=== PATIENT | male | born 1960 | race Caucasian/White ===

== ENCOUNTER 2019-09-16 18:48 | Inpatient (IN) ==
--- OUTSIDE RECORDS SUMMARY | 2019-09-16 18:50 | External Medical Summary | Continuity of Care Document ---
:1960 Author Name Melina Colvin Address Unavailable Unavailable , Care Team Providers Name Role Phone Lori Munguia III, M.D.. Unavailable [email or web address]., Lori Unavailable Unavailable Unavailable Unavailable Unavailable Problems Fatty liver (571.8) (K76.0) Pseudogout (275.49) (M11.20) Herpes simplex (054.9) (B00.9) Abnormal liver function test (790.6) (R94.5) Hypothyroidism (244.9) (E03.9) Allergies and Adverse Reactions No Known Drug Allergies (Allergy) Medications Levothyroxine Sodium 100 MCG Oral Tablet; TAKE 1 TABLE T DAILY DIRECTED. Vinicius Munguia III Quantity: 30 Refills: 5 Procedures History of Shoulder Surgery Status: Comp leted Immunizations Immunizations not documented Family History Father Family history of Alcohol Abuse Status: Active Mother Family history of Chronic Obstructive Pulmonary Disease Stat us: Active Sister Family history of Leukemia (V16.6) Status: Active Plan of Treatment Planned Observations Planned Goals not documented Results No Known Results Results not documented
[2019-09-16] MEDS ORDERED: SODIUM CHLORIDE 0.9% 500 ML IV ONE (19:15)
--- NOTE | 2019-09-16 19:31 | XRay Report ---
XR chest 1V portable CLINICAL HISTORY: 59 years-old Male presenting with Chest Pain. TECHNIQUE: Portable upright AP view of the chest was obtained. COMPARISON: 09/27/2012. FINDINGS: Borderline enlargement of the cardiac silhouette. Pulmonary vasculature not significantly prominent. Mildly low lung volumes. No focal opacity. No large effusion or pneumothorax. Osseous structures norm al. Upper abdomen normal. IMPRESSION: 1. No acute cardiopulmonary disease. ACT 112: Negative or not required by law. Electronically signed by: Deniz Cheema M.D. 09/16/2019 7:30 PM
[2019-09-16 19:36] LABS: Basophils # (auto) 0.03 K/uL (0-0.2); Basophils % (auto) 0.3 %; Eosinophils # (auto) 0.07 K/uL (0-0.5); Eosinophils % (auto) 0.8 %; Hematocrit (blood only) 41.8 % (42-52); Hemoglobin 15.2 g/dL (14.0-18.0); Immature Granulocytes # (auto) 0.02 K/uL (0.00-0.02); Immature Granulocytes % (auto) 0.2 %; Lymphocytes # (auto) 1.62 K/uL (1.2-3.4); Lymphocytes % (auto) 18.3 %; Mean Corpuscular Hemoglobin 33.2 pg (25-34); Mean Corpuscular Hgb Conc 36.4 g/dL (32-36); Mean Corpuscular Volume 91.3 fL (80-100); Mean Platelet Volume 8.9 fL (7.4-10.4); Monocytes # (auto) 0.75 K/uL (0.11-0.59); Monocytes % (auto) 8.5 %; Neutrophils # (auto) 6.36 K/uL (1.4-6.5); Neutrophils % (auto) 71.9 %; Platelet Count 194 K/uL (130-400); RDW Coefficient of Variation 12.3 % (11.5-14.5); RDW Standard Deviation 40.8 fL (36.4-46.3); Red Blood Count 4.58 M/uL (4.7-6.1); White Blood Count 8.85 K/uL (4.8-10.8)
[2019-09-16 19:47] LABS: Partial Thromboplastin Ratio 0.9; Partial Thromboplastin Time 25.4 Seconds (21.0-31.0); Prothrombin Time 10.4 Seconds (9.0-12.0)
[2019-09-16 19:48] LABS: Alanine Aminotransferase 55 U/L (12-78); Aspartate Aminotransferase 27 U/L (15-37); BUN Creatinine Ratio 36.5 (10-20); Blood Urea Nitrogen 29 mg/dl (7-18); Calcium 8.8 mg/dl (8.5-10.1); Carbon Dioxide 24 mmol/L (21-32); Chloride 105 mmol/L (98-107); Creatinine Clr Calc Pharmacy 125.4 ml/min; Est GFR (African American) 114.9; Est GFR (Non-African American) 99.2; Glucose 122 mg/dl (70-99); Lipase 96 U/L (73-393); Magnesium 2.1 mg/dl (1.8-2.4); Potassium 4.2 mmol/L (3.5-5.1); Sodium 135 mmol/L (136-145)
[2019-09-16 19:53] LABS: Alkaline Phosphatase 54 U/L (45-117); Bilirubin,Total 0.9 mg/dl (0.2-1); Globulin 3.9 gm/dl (2.5-4.0); Phosphorus 2.3 mg/dl (2.5-4.9); Total Protein 7.9 gm/dl (6.4-8.2); Troponin I < 0.015 ng/ml (0-0.045)
[2019-09-16] MEDS ORDERED: IOVERSOL 100ml IV PRN (20:51)
--- NOTE | 2019-09-16 21:07 | CT Scan Report ---
CT abd pelvis IV con only CLINICAL HISTORY: 59 years-old Male presenting with generalized abdominal pain, melena. TECHNIQUE: Multidetector CT of the abdomen and pelvis was performed after the administration of intra venous contrast. IV contrast: 90 mL of Optiray 320. One or more dose lowering techniques were used co nsistent with the principles of ALARA (as low as reasonably achievable), including automatic exposure control, mA or kV adjustment to individual patient size, and/or use of iterative reconstruction. COMPARISON: 01/21/2011. CT DOSE (mGy.cm): The estimated cumulative dose is 1235.37 mGy.cm. 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 Lung bases: Mild multichamber enlargement of the heart. No pericardial or pleural effusion. Minimal d ependent changes likely atelectasis. Liver: Normal morphology. Density suggestive of hepatic steatosis. No focal lesion. Patent hepatic va sculature. Biliary: No intrahepatic or extrahepatic biliary ductal dilatation. Gallbladder decompressed. Pancreas: Normal. Spleen: Normal. Adrenal glands: Normal. Kidneys and ureters: Left renal cysts noted. No nephrolithiasis or hydronephrosis. Ureters nondistend ed. Bladder: Normal. Pelvic organs: Prostate and seminal vesicles normal. Bowel: Mild diverticulosis of the proximal sigmoid and distal descending colon without wall thickenin g or pericolonic inflammatory change. The appendix is not visualized. No bowel obstruction. Mild gase ous distention of the esophagus. There is no evidence of intravasation of intravenous contrast into t he bowel lumen to suggest a site of hemorrhage. Peritoneal cavity: Small volume of abdominopelvic ascites primarily in the lower quadrants and superi or pelvis. No free intraperitoneal gas. Lymph nodes: No enlarged lymph nodes in the abdomen or pelvis. Vasculature: Aorta and IVC patent and normal in caliber. Abdominal wall: Small fat-containing right inguinal hernia. Musculoskeletal: Normal. IMPRESSION: 1. Diverticulosis coli. No diverticulitis. 2. Hepatic steatosis. 3. No identifiable site of gastrointestinal hemorrhage allowing for the limited sensitivity for this diagnosis. 4. Small abdominal pelvic ascites. 5. Mild cardiomegaly. ACT 112: Negative or not required by law. Electronically signed by: Deniz Cheema M.D. 09/16/2019 9:05 PM
[2019-09-16] MEDS ORDERED: PANTOprazole 80 MG in DEXTROSE 5% 100 ML IV STA (21:28)
[2019-09-16] MEDS: PANTOprazole 40 MG in DEXTROSE 5% 100 ML IV SCH (22:05)
--- NOTE | 2019-09-16 22:18 | History & Physical Report ---
Date of Service September 16, 2019 Assessment & Plan (1) UGIB (upper gastrointestinal bleed): Differentials include : Gastritis, PUD PAF sp ablation Patient NSR on aspirin for thromboprophylaxis hypothyroidism, euthyroid as of recent outpatient TSH prediabetes as per records, recent outpatient hemoglobin A1c of 5.07 July 2019 OBS Medical telemetry IV PPI GI consult RE U GIB Appropriate to hold home aspirin for now serial H&H, transfuse PRBC if hemoglobin less than 7 and or for symptomatic anemia DVT prophylaxis. SCDs RE U GIB Full code History of Present Illness Chief Complaint: Melena Primary Care Provider: Dr. Rodriguez History obtained from patient, family, and records. Medical history significant for A. fib status post ablation, hypertension, hypothyroidism, prediabetes as per records, colonic polyposis as per records, history difficult intubation as per records. Recent confinement August 2012 for acute parotitis. This morning, patient noted melanotic stools without nausea, emesis, abdominal pain symptoms. No chest pain, no S OB. No prior episodes. No OTC NSAID intake. No unusual weight loss. At the ER, patient started on PPI for UGIB. 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 Allergies Allergy/AdvReac Type Severity Reaction Status Date / Time PAUL Inhibitors Allergy Unknown RASH Verified 09/16/19 19:52 iodine Allergy Unknown KIDNEY AND Verified 09/16/19 19:52 LIVER FAILURE hydrochlorothiazide AdvReac Unknown Seizure Verified 09/17/19 00:07 Home Medications Home Medications Medication Instructions Recorded Confirmed Type aspirin 162 mg PO QAM 10/16/18 09/16/19 History levothyroxine 100 mcg PO QAM 10/16/18 09/16/19 History acetaminophen [Tylenol Extra 500 mg PO Q6H PRN 09/16/19 09/16/19 History Strength] metoprolol tartrate 100 mg PO QAM 09/16/19 09/16/19 History Past Med/Surg History Medical History Atrial fibrillation DX 5 YEARS AGO - S/P ABLATION - FOLLOWS W/ DR. QUINTANILLA Fatty liver History of acute renal failure 5 YEARS AGO - [facility] - R/T INFECTION SECONDARY TO SPIDER BITE - DENIES CHRONIC ISSUES Hypertension Hypothyroidism Surgical History History of appendectomy History of arthroscopy BL SHOULDER History of cardiac cath 5 YEARS AGO - [facility] - ARRHYTHMIA - NO STENTS/ANGIOPLASTY History of cardiac radiofrequency ablation History of cataract surgery History of colonoscopy W/ POLYPECTOMY History of esophagogastroduodenoscopy (EGD) History of tonsillectomy Social History Preferred Language: Armenian Communication Ability: Effective 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 Beliefs That Will Affect Care: None Current Living Situation: Spouse Current Living Situation Comment: lives in 2 story house with Other Information That Helps Us Care for You: No Feels Safe at Home: Yes Safety Concerns: Feels Safe At This Time Smoking Status: Never smoker Do You Dip or Chew Tobacco: No ; Second Hand Exposure: Yes ; Hx Alcohol Use: No Hx Substance Use: No Review of Systems Review of Systems: As per HPI, all 10 systems reviewed, all other ROS negative Physical Exam Physical Exam: GENERAL: Comfortable, obese, slightly anxious, no respiratory distress SKIN: Normal color, warm HEENT: [place] palpebral conjunctivae, no ptosis, dry buccal mucosa NECK : Supple, short neck, no tenderness CHEST : CTA, no tenderness HEART : RRR, no obvious murmurs ABDOMEN: Some distention, nontender EXTREMITIES : No LE swelling/tenderness, no other conspicuous deformities noted NEUROLOGIC : Coherent, no facial asymmetry, no other gross focality Results & Data Vital Signs (Past 12 Hours) Vital Signs Temp Pulse Pulse Resp BP BP Pulse Ox 09/16/19 21:26 90 20 146/82 H 98 09/16/19 19:19 96 09/16/19 19:14 74 20 141/88 H 95 09/16/19 18:57 36.9 C 69 16 154/92 H 94 Laboratory Results Laboratory Results WBC 8.85 K/uL (4.8-10.8) 09/16/19 19:10 RBC 4.58 M/uL (4.7-6.1) L 09/16/19 19:10 Hgb 15.2 g/dL (14.0-18.0) 09/16/19 19:10 Hct 41.8 % (42-52) L 09/16/19 19:10 MCV 91.3 fL (80-100) 09/16/19 19:10 MCH 33.2 pg (25-34) 09/16/19 19:10 MCHC 36.4 g/dL (32-36) H 09/16/19 19:10 RDW Std Deviation 40.8 fL (36.4-46.3) 09/16/19 19:10 RDW Coeff of Marcia 12.3 % (11.5-14.5) 09/16/19 19:10 Plt Count 194 K/uL (130-400) 09/16/19 19:10 MPV 8.9 fL (7.4-10.4) 09/16/19:10 Immature Gran % (Auto) 0.2 % 09/16/19:10 Neut % (Auto) 71.9 % 09/16/19:10 Lymph % (Auto) 18.3 % 09/16/19 19:10 [place] % (Auto) 8.5 % 09/16/19 19:10 Eos % (Auto) 0.8 % 09/16/19 19:10 Baso % (Auto) 0.3 % 09/16/19:10 Immature Gran # (Auto) 0.02 K/uL (0.00-0.02) 09/16/19:10 Neut # (Auto) 6.36 K/uL (1.4-6.5) 09/16/19:10 Lymph # (Auto) 1.62 K/uL (1.2-3.4) 09/16/19:10 [place] # (Auto) 0.75 K/uL (0.11-0.59) H 09/16/19 19:10 Eos # (Auto) 0.07 K/uL (0-0.5) 09/16/19 19:10 Baso # (Auto) 0.03 K/uL (0-0.2) 09/16/19:10 PT 10.4 Seconds (9.0-12.0) 09/16/19 19:10 INR 1.0 (0.9-1.1) 09/16/19 19:10 APTT 25.4 Seconds (21.0-31.0) 09/16/19 19:10 PTT Ratio 0.9 09/16/19 19:10 Sodium 135 mmol/L (136-145) L 09/16/19 19:10 Potassium 4.2 mmol/L (3.5-5.1) 09/16/19 19:10 Chloride 105 mmol/L (98-107) 09/16/19 19:10 Carbon Dioxide 24 mmol/L (21-32) 09/16/19 19:10 Anion Gap 6.0 (3-11) 09/16/19 19:10 BUN 29 mg/dl (7-18) H 09/16/19 19:10 Creatinine 0.80 mg/dl (0.6-1.4) 09/16/19 19:10 Est Cr Clr Drug Dosing 125.4 ml/min 09/16/19 19:10 Est GFR ( Amer) 114.9 09/16/19 19:10 Est GFR (Non-Af Amer) 99.2 09/16/19 19:10 BUN/Creatinine Ratio 36.5 (10-20) H 09/16/19 19:10 Glucose 122 mg/dl (70-99) H 09/16/19 19:10 Calcium 8.8 mg/dl (8.5-10.1) 09/16/19 19:10 Phosphorus 2.3 mg/dl (2.5-4.9) L 09/16/19 19:10 Magnesium 2.1 mg/dl (1.8-2.4) 09/16/19 19:10 Total Bilirubin 0.9 mg/dl (0.2-1) 09/16/19 19:10 AST 27 U/L (15-37) 09/16/19 19:10 ALT 55 U/L (12-78) 09/16/19 19:10 Alkaline Phosphatase 54 U/L (45-117) 09/16/19 19:10 Troponin I < 0.015 ng/ml (0-0.045) 09/16/19 19:10 Total Protein 7.9 gm/dl (6.4-8.2) 09/16/19 19:10 Albumin 4.0 gm/dl (3.4-5.0) 09/16/19 19:10 Globulin 3.9 gm/dl (2.5-4.0) 09/16/19 19:10 Albumin/Globulin Ratio 1.0 (0.9-2) 09/16/19 19:10 Lipase 96 U/L (73-393) 09/16/19 19:10 Blood Type A Negative 09/16/19 19:34 Antibody Screen NEGATIVE 09/16/19 19:34 Diagnostic Findings Chest x-ray: No acute cardiopulmonary disease CT abdomen pelvis: 1. Diverticulosis coli. No diverticulitis. 2. Hepatic steatosis. 3. No identifiable site of gastrointestinal hemorrhage allowing for the limited sensitivity for this diagnosis. 4. Small abdominal pelvic ascites. 5. Mild cardiomegaly. EKG as per my interpretation: Rate 75, NSR, normal axis, T wave abnormalities inferior leads
--- NOTE | 2019-09-16 22:57 | Emergency Department Note ---
Entered by Rowan Bang acting as a scribe for Valdemar Blum MD History of Present Illness General Chief complaint: Diarrhea Stated complaint: BLACK TAR-COLORED DIARRHEA Time Seen by Provider: 09/16/19 19:07 Source: patient History of Present Illness Provider complaint: Black stools Onset (ago): hour(s) greater than 10 Location: genitals Quality: + other (black stool;) Associated symptoms: + cough and + other (Positive lightheadedness; Negative pain; Negative tenderness; Negative congestion;); no chest pain and no fever/chills The patient, who is a 59 year old male with no significant medical history, presents to the Emergency Room with complaints of black stools that started today. The patient informs that she has abdominal pain in his lower quadrants. The patient notes that he only had breakfast today. The patient recalls that yesterday he had a cough and today around 0330 he had three episodes of bowel m ovements that were black. The patient reports having another three episodes of diarrhea that also involved black stools. The patient admits to feelings lightheaded. The patient denies any tenderness, pain, fever, congestion or chest pain. The patient denies a history of ulcers. The patient reports taking Metoprolol to control his atrial fibrillation. The patient denies any current use of blood thinners. Home Medications Home Medications Medication Instructions Recorded Confirmed Type aspirin 162 mg PO QAM 10/16/18 09/16/19 History levothyroxine 100 mcg PO QAM 10/16/18 09/16/19 History acetaminophen [Tylenol Extra 500 mg PO Q6H PRN 09/16/19 09/16/19 History Strength] metoprolol tartrate 100 mg PO QAM 09/16/19 09/16/19 History Allergies Allergy/AdvReac Type Severity Reaction Status Date / Time PAUL Inhibitors Allergy Unknown RASH Verified 09/16/19 19:52 iodine Allergy Unknown KIDNEY AND Verified 09/16/19 19:52 LIVER FAILURE hydrochlorothiazide AdvReac Unknown Seizure Verified 09/17/19 00:07 Past Med/Surg History Medical History Atrial fibrillation DX 5 YEARS AGO - S/P ABLATION - FOLLOWS W/ DR. QUINTANILLA Fatty liver History of acute renal failure 5 YEARS AGO - [facility] - R/T INFECTION SECONDARY TO SPIDER BITE - DENIES CHRONIC ISSUES Hypertension Hypothyroidism Surgical History History of appendectomy History of arthroscopy BL SHOULDER History of cardiac cath 5 YEARS AGO - [facility] - ARRHYTHMIA - NO STENTS/ANGIOPLASTY History of cardiac radiofrequency ablation History of cataract surgery History of colonoscopy W/ POLYPECTOMY History of esophagogastroduodenoscopy (EGD) History of tonsillectomy Social History Preferred Language: [place] Communication Ability: Effective Medical Technologist Chemistry Required: No Beliefs That Will Affect Care: None Current Living Situation: Spouse Current Living Situation Comment: lives in 2 story house with Other Information That Helps Us Care for You: No Feels Safe at Home: Yes Safety Concerns: Feels Safe At This Time Smoking Status: Never smoker Do You Dip or Chew Tobacco: No ; Second Hand Exposure: Yes ; Hx Alcohol Use: No Hx Substance Use: No Review of Systems See HPI for pertinent positives & negatives. and A total of 10 systems reviewed and were otherwise negative Physical Exam Vital Signs Vital Signs - 24 hr 09/16/19 18:57 09/16/19 19:14 09/16/19 19:19 Temperature 36.9 C Temperature Source Oral Pulse Rate 69 Pulse Rate [Right Finger] 74 Pulse Rhythm [Right Finger] Regular Pulse Strength [Right Finger] Normal Respiratory Rate 16 20 Respiratory Effort / Characteristics Non-Labored Spontaneous Non-Labored Spontaneous Respiratory Depth Normal Normal Blood Pressure 154/92 H Blood Pressure [Left Arm] 141/88 H Blood Pressure Mean 112 Blood Pressure Mean [Left Arm] 105 Blood Pressure Position Sitting Blood Pressure Position [Left Arm] Sitting Pulse Oximetry 94 95 96 Oxygen Delivery Method Room Air Room Air Room Air Sepsis Recent Fever Within 48 Hours No Sepsis Action Taken by Nursing No Action Required 09/16/19 21:26 Temperature Temperature Source Pulse Rate Pulse Rate [Right Finger] 90 Pulse Rhythm [Right Finger] Regular Pulse Strength [Right Finger] Normal Respiratory Rate 20 Respiratory Effort / Characteristics Non-Labored Spontaneous Respiratory Depth Normal Blood Pressure Blood Pressure [Left Arm] 146/82 H Blood Pressure Mean Blood Pressure Mean [Left Arm] 103 Blood Pressure Position Blood Pressure Position [Left Arm] Pulse Oximetry 98 Oxygen Delivery Method Room Air Sepsis Recent Fever Within 48 Hours Sepsis Action Taken by Nursing GENERAL: Awake, alert, fatigued-appearing, in no distress HENT: Normocephalic, atraumatic. Oropharynx with dry mucous membranes and otherwise unremarkable. EYES: Normal conjunctiva. Sclera non-icteric. NECK: Supple. No nuchal rigidity. FROM. No JVD. RESPIRATORY: CTA bilaterally. CARDIAC: Regular rate, normal rhythm. Extremities warm and well perfused. Pulses equal. ABDOMEN: Soft, non-distended. No tenderness to palpation. No rebound or guarding. No masses. RECTAL: Scant black stool, hemoccult positive, no gross blood. MUSCULOSKELETAL: Chest examination reveals no tenderness. The back is symmetrical on inspection without obvious abnormality. There is no CVA tenderness to palpation. No joint edema. LOWER EXTREMITIES: Calves are equal size bilaterally and non-tender. No edema. No discoloration. NEURO: Normal sensorium. No sensory or motor deficits noted. SKIN: No rash or jaundice noted. Course Course 1931: Past medical records reviewed. The patient was evaluated in room A12. A complete history and physical exam was performed. 2136: [facility] He will evaluate the patient for further management. Consultations Consultation #1: I reviewed the patient's case with Dr. Chow [facility]. He will evaluate the patient for further management. Time: 21:37 Administered Medications Pantoprazole Sodium 40 mg/ (Dextrose) 100 mls @ 20 mls/hr IV Q5H [facility] Stop: 10/16/19 21:44 Last Admin: 09/16/19 22:05 Dose: 20 mls/hr Documented by: [id number] Sodium Chloride (Nss 1000ml) 1,000 mls @ 40 mls/hr IV .Q24H ANN Stop: 10/16/19 23:58 Last Admin: 09/17/19 01:03 Dose: 40 mls/hr Documented by: [id number] Discontinued Medications Sodium Chloride (Nss) 500 mls @ 999 mls/hr IV .Q31M ONE Stop: 09/16/19 19:45 Last Infusion: 09/16/19 19:56 Dose: 0 mls/hr Documented by: [id number] Admin: 09/16/19 19:24 Dose: 999 mls/hr Documented by: [id number] Pantoprazole Sodium 80 mg/ (Dextrose) 120 mls @ 480 mls/hr IV NOW STA Stop: 09/16/19 21:42 Last Infusion: 09/16/19 22:05 Dose: 0 mls/hr Documented by: [id number] Admin: 09/16/19 21:50 Dose: 480 mls/hr Documented by: [id number] Ioversol (Optiray 320 100ml) 90 ml IV ONCE PRN PRN Reason: Interaction Checking Stop: 09/20/19 20:50 Last Admin: 09/16/19 20:51 Dose: 90 ml Documented by: [id number] Critical Care Time Critical Care Time: Yes Total Critical Care Time: 35 I have personally spent 35 minutes of critical care time in the direct management of this patient. This includes bedside care, interpretation of diagnostic studies, and testing, discussion with consultants, patient, and family members, and other required patient management activities. This 35 minutes is in excess of all separately billable procedures. Medical Decision Making Differential Diagnosis Differential diagnosis includes etiologies such as diverticulosis, AVM, coagulopathy, colitis, inflammatory bowel disease, malignancy, Oriana-Jimenez tear, esophagitis, peptic ulcer disease, variceal bleed, gastritis, epistaxis, fissure, hemorrhoids, as well as others were entertained. Medical Records Attestation: I reviewed the patient's medical records. Home Medications Current Medication List: was personally reviewed by me Laboratory Data Attestation: I reviewed the patient's lab results. Result diagrams: 09/17/19 00:08 09/16/19 19:10 Lab Results 09/16/19 09/16/19 09/16/19 Range/Units 19:10 19:10 19:10 WBC 8.85 (4.8-10.8) K/uL RBC 4.58 L (4.7-6.1) M/uL Hgb 15.2 (14.0-18.0) g/dL Hct 41.8 L (42-52) % MCV 91.3 (80-100) fL MCH 33.2 (25-34) pg MCHC 36.4 H (32-36) g/dL RDW Std Deviation 40.8 (36.4-46.3) fL RDW Coeff of Marcia 12.3 (11.5-14.5) % Plt Count 194 (130-400) K/uL MPV 8.9 (7.4-10.4) fL Immature Gran % (Auto) 0.2 % Neut % (Auto) 71.9 % Lymph % (Auto) 18.3 % [place] % (Auto) 8.5 % Eos % (Auto) 0.8 % Baso % (Auto) 0.3 % Immature Gran # (Auto) 0.02 (0.00-0.02) K/uL Neut # (Auto) 6.36 (1.4-6.5) K/uL Lymph # (Auto) 1.62 (1.2-3.4) K/uL [place] # (Auto) 0.75 H (0.11-0.59) K/uL Eos # (Auto) 0.07 (0-0.5) K/uL Baso # (Auto) 0.03 (0-0.2) K/uL PT 10.4 (9.0-12.0) Seconds INR 1.0 (0.9-1.1) APTT 25.4 (21.0-31.0) Seconds PTT Ratio 0.9 Sodium 135 L (136-145) mmol/L Potassium 4.2 (3.5-5.1) mmol/L Chloride 105 (98-107) mmol/L Carbon Dioxide 24 (21-32) mmol/L Anion Gap 6.0 (3-11) BUN 29 H (7-18) mg/dl Creatinine 0.80 (0.6-1.4) mg/dl Est Cr Clr Drug Dosing 125.4 ml/min Est GFR ( Amer) 114.9 Est GFR (Non-Af Amer) 99.2 BUN/Creatinine Ratio 36.5 H (10-20) Glucose 122 H (70-99) mg/dl Calcium 8.8 (8.5-10.1) mg/dl Phosphorus 2.3 L (2.5-4.9) mg/dl Magnesium 2.1 (1.8-2.4) mg/dl Total Bilirubin 0.9 (0.2-1) mg/dl AST 27 (15-37) U/L ALT 55 (12-78) U/L Alkaline Phosphatase 54 (45-117) U/L Troponin I < 0.015 (0-0.045) ng/ml Total Protein 7.9 (6.4-8.2) gm/dl Albumin 4.0 (3.4-5.0) gm/dl Globulin 3.9 (2.5-4.0) gm/dl Albumin/Globulin Ratio 1.0 (0.9-2) Lipase 96 (73-393) U/L Blood Type Antibody Screen 09/16/19 Range/Units 19:34 WBC (4.8-10.8) K/uL RBC (4.7-6.1) M/uL Hgb (14.0-18.0) g/dL Hct (42-52) % MCV (80-100) fL MCH (25-34) pg MCHC (32-36) g/dL RDW Std Deviation (36.4-46.3) fL RDW Coeff of Marcia (11.5-14.5) % Plt Count (130-400) K/uL MPV (7.4-10.4) fL Immature Gran % (Auto) % Neut % (Auto) % Lymph % (Auto) % [place] % (Auto) % Eos % (Auto) % Baso % (Auto) % Immature Gran # (Auto) (0.00-0.02) K/uL Neut # (Auto) (1.4-6.5) K/uL Lymph # (Auto) (1.2-3.4) K/uL [place] # (Auto) (0.11-0.59) K/uL Eos # (Auto) (0-0.5) K/uL Baso # (Auto) (0-0.2) K/uL PT (9.0-12.0) Seconds INR (0.9-1.1) APTT (21.0-31.0) Seconds PTT Ratio Sodium (136-145) mmol/L Potassium (3.5-5.1) mmol/L Chloride (98-107) mmol/L Carbon Dioxide (21-32) mmol/L Anion Gap (3-11) BUN (7-18) mg/dl Creatinine (0.6-1.4) mg/dl Est Cr Clr Drug Dosing ml/min Est GFR ( Amer) Est GFR (Non-Af Amer) BUN/Creatinine Ratio (10-20) Glucose (70-99) mg/dl Calcium (8.5-10.1) mg/dl Phosphorus (2.5-4.9) mg/dl Magnesium (1.8-2.4) mg/dl Total Bilirubin (0.2-1) mg/dl AST (15-37) U/L ALT (12-78) U/L Alkaline Phosphatase (45-117) U/L Troponin I (0-0.045) ng/ml Total Protein (6.4-8.2) gm/dl Albumin (3.4-5.0) gm/dl Globulin (2.5-4.0) gm/dl Albumin/Globulin Ratio (0.9-2) Lipase (73-393) U/L Blood Type A Negative Antibody Screen NEGATIVE Imaging Data Radiologist's Impression: Radiology results as stated below per my review and the radiologist's interpretation: XR chest 1V portable CLINICAL HISTORY: 59 years-old Male presenting with Chest Pain. TECHNIQUE: Portable upright AP view of the chest was obtained. COMPARISON: 09/27/2012. FINDINGS: Borderline enlargement of the cardiac silhouette. Pulmonary vasculature not significantly prominent. Mildly low lung volumes. No focal opacity. No large effusion or pneumothorax. Osseous structures normal. Upper abdomen normal. IMPRESSION: 1. No acute cardiopulmonary disease. ACT 112: Negative or not required by law. Electronically signed by: Deniz Cheema M.D. 09/16/2019 7:[address] abd pelvis IV con only CLINICAL HISTORY: 59 years-old Male presenting with generalized abdominal pain, melena. TECHNIQUE: Multidetector CT of the abdomen and pelvis was performed after the administration of intravenous contrast. IV contrast: 90 mL of Optiray 320. One or more dose lowering techniques were used consistent with the principles of ALARA (as low as reasonably achievable), including automatic exposure control, mA or kV adjustment to individual patient size, and/or use of iterative reconstruction. COMPARISON: 01/21/2011. CT DOSE (mGy.cm): The estimated cumulative dose is 1235.37 mGy.cm. 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 Lung bases: Mild multichamber enlargement of the heart. No pericardial or pleural effusion. Minimal dependent changes likely atelectasis. Liver: Normal morphology. Density suggestive of hepatic steatosis. No focal lesion. Patent hepatic vasculature. Biliary: No intrahepatic or extrahepatic biliary ductal dilatation. Gallbladder decompressed. Pancreas: Normal. Spleen: Normal. Adrenal glands: Normal. Kidneys and ureters: Left renal cysts noted. No nephrolithiasis or hydronephrosis. Ureters nondistended. Bladder: Normal. Pelvic organs: Prostate and seminal vesicles normal. Bowel: Mild diverticulosis of the proximal sigmoid and distal descending colon without wall thickening or pericolonic inflammatory change. The appendix is not visualized. No bowel obstruction. Mild gaseous distention of the esophagus. There is no evidence of intravasation of intravenous contrast into the bowel lumen to suggest a site of hemorrhage. Peritoneal cavity: Small volume of abdominopelvic ascites primarily in the lower quadrants and superior pelvis. No free intraperitoneal gas. Lymph nodes: No enlarged lymph nodes in the abdomen or pelvis. Vasculature: Aorta and IVC patent and normal in caliber. Abdominal wall: Small fat-containing right inguinal hernia. Musculoskeletal: Normal. IMPRESSION: 1. Diverticulosis coli. No diverticulitis. 2. Hepatic steatosis. 3. No identifiable site of gastrointestinal hemorrhage allowing for the limited sensitivity for this diagnosis. 4. Small abdominal pelvic ascites. 5. Mild cardiomegaly. ACT 112: Negative or not required by law. Electronically signed by: Deniz Cheema M.D. 09/16/2019 9:05 PM ECG Data Attestation: I personally reviewed and interpreted this ECG as follows: Indication: + other (Diarrhea) Rate (beats per minute): 75 Rhythm: + normal sinus ECG [place]: + Normal ECG ST segments: no ST depression and no ST elevation ECG Findings: + Other (QRS of 96; QTC of 422) Blood Pressure Blood Pressure Findings: Elevated blood pressure Blood Pressure Disposition: further management by hospitalist [facility] Narrative The patient is a pleasant 59-year-old gentleman who presents emergency department with black stools which began today per HPI. Patient denies being on any anticoagulation. He takes a baby aspirin. He denies any history of peptic ulcer. Exam the patient appears clinically dry. Abdomen is benign. Rectal exam demonstrates scant black stool that is Hemoccult positive. There is no gross hemorrhage. EKG without overt acute ischemia. Chest x-ray negative for acute process. WBC, hemoglobin, platelets within normal limits. Chemistry without acidosis. BUN however is elevated at 29. Phosphorus 2.3 and electrolytes otherwise unremarkable. LFTs unremarkable. Troponin negative/undetectable. CT the abdomen pelvis negative for acute process. Patient was ordered for Protonix bolus and drip. Given the patient's melena in the setting of reporting symptoms of lightheadedness reasonable to proceed with admission. Patient was agreeable with this. Case was discussed with Dr. Hanson[facility], who will evaluate the patient for admission. Impression & Plan UGIB (upper gastrointestinal bleed), Melena, Status post ablation of atrial fib rillation Discharge Plan Visit Data *Final* Discharge Date/Time: 09/16/19 23:04 Chief Complaint: Diarrhea Stated Complaint: BLACK TAR-COLORED DIARRHEA ED Provider: Valdemar Blum Discharge Problem: UGIB (upper gastrointestinal bleed), Melena, Status post ablation of atrial fibrillation Patient Disposition: Admitted As Inpatient Discharge Instructions Interventions: ED Discharge Assessment Last Done: 09/16/19 23:04 The scribe's documentation has been prepared under my direction and personally reviewed by me in its entirety. I confirm that the note above accurately reflects all work, treatment, procedures, and medical decision making performed by me.
[2019-09-16] MEDS ORDERED: LORazepam 0.5 MG/1 ML VIAL IV PRN (23:59)
[2019-09-16] MEDS ORDERED: PROMETHAZINE HCL 12.5 MG in SODIUM CHLORIDE 0.9% 50 ML IV PRN (23:59)
[2019-09-16] MEDS ORDERED: ACETAMINOPHEN 325 MG TAB PO PRN (23:59)
[2019-09-16] MEDS ORDERED: TRAMADOL HCL 50 MG TABLET PO PRN (23:59)
[2019-09-17 00:37] LABS: Hematocrit (blood only) 38.4 % (42-52); Hemoglobin 13.5 g/dL (14.0-18.0)
[2019-09-17] MEDS: SODIUM CHLORIDE 0.9% 1000ML 1,000 ML IV SCH (01:03)
[2019-09-17] MEDS: PANTOprazole 40 MG in DEXTROSE 5% 100 ML IV SCH ×5 (03:12→21:44)
[2019-09-17] MEDS ORDERED: POTASSIUM PHOS 3 MMOL/1 ML INFUSION IV STA (04:14)
[2019-09-17] MEDS ORDERED: POTASSIUM PHOSPHATE 18 MMOL in SODIUM CHLORIDE 0.9% 500 ML IV ONE (04:30)
[2019-09-17] MEDS: LEVOTHYROXINE SODIUM 100 MCG TABLET PO SCH (05:58)
[2019-09-17 07:00] LABS: Basophils # (auto) 0.03 K/uL (0-0.2); Basophils % (auto) 0.6 %; Eosinophils # (auto) 0.08 K/uL (0-0.5); Eosinophils % (auto) 1.6 %; Hematocrit (blood only) 36.4 % (42-52); Immature Granulocytes # (auto) 0.01 K/uL (0.00-0.02); Immature Granulocytes % (auto) 0.2 %; Lymphocytes # (auto) 1.68 K/uL (1.2-3.4); Lymphocytes % (auto) 34.5 %; Mean Corpuscular Hemoglobin 32.7 pg (25-34); Mean Corpuscular Hgb Conc 35.7 g/dL (32-36); Mean Corpuscular Volume 91.7 fL (80-100); Mean Platelet Volume 8.4 fL (7.4-10.4); Monocytes # (auto) 0.61 K/uL (0.11-0.59); Monocytes % (auto) 12.5 %; Neutrophils # (auto) 2.46 K/uL (1.4-6.5); Neutrophils % (auto) 50.6 %; Platelet Count 176 K/uL (130-400); RDW Coefficient of Variation 12.4 % (11.5-14.5); RDW Standard Deviation 41.5 fL (36.4-46.3); Red Blood Count 3.97 M/uL (4.7-6.1); White Blood Count 4.87 K/uL (4.8-10.8)
[2019-09-17 07:31] LABS: BUN Creatinine Ratio 26.1 (10-20); Calcium 8.1 mg/dl (8.5-10.1); Est GFR (Non-African American) 101.8; Potassium 3.7 mmol/L (3.5-5.1)
[2019-09-17] MEDS: METOPROLOL TARTRATE 100 MG TAB PO SCH (07:53)
--- NOTE | 2019-09-17 08:52 | Gastrointestinal Consultation ---
Date of Consultation September 17, 2019 Assessment & Plan (1) UGIB (upper gastrointestinal bleed): 59 year old male with pAFIB on ASA, HTN, hypothyroidism presenting with 6 episodes of melena - he is hemodynamically stable w/ stable BP. Slight drop in HGB from 15 ->13. DDX disccussed: MWT vs esophagitis vs gastritis vs other NPO IV PPI bolus and drip EGD today No NSAIDs Trend HGB Monitor all BMs Transfuse PRN HGB < 8 Thank you for allowing us to participate in the care of this patient. Please call with any acute changes, questions or concerns. Please see addendum below with additional recommendation from my supervising physician. Supervising Physician Co-Signing Physician Notes I performed a history and physical examination of the patient, including specifically on physical exam - soft, nontender abdomen. I have discussed the patient's management with Crystal. Please refer to the nurse practitioner's note for the documented findings and plan of care. EGD today for suspected UGIB. History of Present Illness Reason for Consultation: UGI bleed Requesting Physician: Den Attending Physician: Bridger Crenshaw MD History of Present Illness 59 year old male with history of hypothyroidism, HTN, afib on ASA who presents through the ED For evaluation of dark, tarry stools - GI asked to evaluate for UGI bleed. Pt was seen and evaluated, chart reviewed. Notes that over the past few days he has had a bad cough. Suggests he had the sudden urge to have BM around 3AM on Tuesday and when he went he noted dark, tarry stools. He felt well - had continued about his day. Subsequent had 5 additional BM which were noted to be dark, tarry. At this time he felt lightheaded and dizzy and sought ED care. He denies any UGI symptoms - specifically no nausea, vomiting, hematemesis or coffee ground emesis. He does have mild GERD - he is not on therapy for this. Last BM was 5pm on Tuesday. No further stools since admission. No BRBPR. No fever, chills, CP, SOB. NSAIDS ASA ETOH none AC none Allergies Allergy/AdvReac Type Severity Reaction Status Date / Time PAUL Inhibitors Allergy Unknown RASH Verified 09/16/19 19:52 iodine Allergy Unknown KIDNEY AND Verified 09/16/19 19:52 LIVER FAILURE hydrochlorothiazide AdvReac Unknown Seizure Verified 09/17/19 00:07 Home Medications Home Medications Medication Instructions Recorded Confirmed Type aspirin 162 mg PO QAM 10/16/18 09/16/19 History levothyroxine 100 mcg PO QAM 10/16/18 09/16/19 History acetaminophen [Tylenol Extra 500 mg PO Q6H PRN 09/16/19 09/16/19 History Strength] metoprolol tartrate 100 mg PO QAM 09/16/19 09/16/19 History Patient History Medical History Atrial fibrillation DX 5 YEARS AGO - S/P ABLATION - FOLLOWS W/ DR. QUINTANILLA Fatty liver History of acute renal failure 5 YEARS AGO - [facility] - R/T INFECTION SECONDARY TO SPIDER BITE - DENIES CHRONIC ISSUES Hypertension Hypothyroidism Surgical History History of appendectomy History of arthroscopy BL SHOULDER History of cardiac cath 5 YEARS AGO - [facility] - ARRHYTHMIA - NO STENTS/ANGIOPLASTY History of cardiac radiofrequency ablation History of cataract surgery History of colonoscopy W/ POLYPECTOMY History of esophagogastroduodenoscopy (EGD) History of tonsillectomy Social History Preferred Language: Burmese Communication Ability: Effective 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 Beliefs That Will Affect Care: None Current Living Situation: Spouse Current Living Situation Comment: lives in 2 story house with Other Information That Helps Us Care for You: No Feels Safe at Home: Yes Safety Concerns: Feels Safe At This Time Smoking Status: Never smoker Do You Dip or Chew Tobacco: No ; Second Hand Exposure: Yes ; Hx Alcohol Use: No Hx Substance Use: No Review of Systems Constitutional: no fever, no chills and no fatigue Respiratory: + cough; no dyspnea Cardiovascular: no chest pain Gastrointestinal: + change in stools, + diarrhea/loose stools and + melena; no abdominal pain, no early satiety, no nausea, no vomiting, no coffee ground emesis, no hematemesis, no pain with swallowing, no cramping, no excessive flatulence, no constipation, no fecal incontinence and no blood in stools Physical Exam Constitutional: WD/WN, vitals as above no acute distress Respiratory: normal respiratory effort Cardiovascular: Rate/Rhythm: regular rate Gastrointestinal (Abdomen): normal bowel sounds, soft, nontender, no he patosplenomegaly Results & Data Vital Signs (Past 12 Hours) Vital Signs Temp Pulse Pulse Resp BP Pulse Ox 09/17/19 07:05 36.6 C 73 16 119/72 98 09/17/19 04:37 36.6 C 72 18 128/76 94 09/17/19 03:15 71 09/16/19 23:30 36.8 C 74 18 156/89 H 96 09/16/19 23:03 78 20 129/80 98 09/16/19 21:26 90 20 146/82 H 98 Laboratory Results 09/17/19 09/17/19 09/17/19 Range/Units 06:32 06:32 00:08 WBC 4.87 (4.8-10.8) K/uL RBC 3.97 L (4.7-6.1) M/uL Hgb 13.0 L 13.5 L (14.0-18.0) g/dL Hct 36.4 L 38.4 L (42-52) % MCV 91.7 (80-100) fL MCH 32.7 (25-34) pg MCHC 35.7 (32-36) g/dL RDW Std Deviation 41.5 (36.4-46.3) fL RDW Coeff of Marcia 12.4 (11.5-14.5) % Plt Count 176 (130-400) K/uL MPV 8.4 (7.4-10.4) fL Immature Gran % (Auto) 0.2 % Neut % (Auto) 50.6 % Lymph % (Auto) 34.5 % [place] % (Auto) 12.5 % Eos % (Auto) 1.6 % Baso % (Auto) 0.6 % Immature Gran # (Auto) 0.01 (0.00-0.02) K/uL Neut # (Auto) 2.46 (1.4-6.5) K/uL Lymph # (Auto) 1.68 (1.2-3.4) K/uL [place] # (Auto) 0.61 H (0.11-0.59) K/uL Eos # (Auto) 0.08 (0-0.5) K/uL Baso # (Auto) 0.03 (0-0.2) K/uL PT (9.0-12.0) Seconds INR (0.9-1.1) APTT (21.0-31.0) Seconds PTT Ratio Sodium 138 (136-145) mmol/L Potassium 3.7 (3.5-5.1) mmol/L Chloride 106 (98-107) mmol/L Carbon Dioxide 26 (21-32) mmol/L Anion Gap 6.0 (3-11) BUN 20 H (7-18) mg/dl Creatinine 0.75 (0.6-1.4) mg/dl Est Cr Clr Drug Dosing 133.0 ml/min Est GFR ( Amer) 118.0 Est GFR (Non-Af Amer) 101.8 BUN/Creatinine Ratio 26.1 H (10-20) Glucose 109 H (70-99) mg/dl Calcium 8.1 L (8.5-10.1) mg/dl Phosphorus (2.5-4.9) mg/dl Magnesium (1.8-2.4) mg/dl Total Bilirubin (0.2-1) mg/dl AST (15-37) U/L ALT (12-78) U/L Alkaline Phosphatase (45-117) U/L Troponin I (0-0.045) ng/ml Total Protein (6.4-8.2) gm/dl Albumin (3.4-5.0) gm/dl Globulin (2.5-4.0) gm/dl Albumin/Globulin Ratio (0.9-2) Lipase (73-393) U/L Blood Type Antibody Screen 09/16/19 09/16/19 09/16/19 Range/Units 19:34 19:10 19:10 WBC (4.8-10.8) K/uL RBC (4.7-6.1) M/uL Hgb (14.0-18.0) g/dL Hct (42-52) % MCV (80-100) fL MCH (25-34) pg MCHC (32-36) g/dL RDW Std Deviation (36.4-46.3) fL RDW Coeff of Marcia (11.5-14.5) % Plt Count (130-400) K/uL MPV (7.4-10.4) fL Immature Gran % (Auto) % Neut % (Auto) % Lymph % (Auto) % [place] % (Auto) % Eos % (Auto) % Baso % (Auto) % Immature Gran # (Auto) (0.00-0.02) K/uL Neut # (Auto) (1.4-6.5) K/uL Lymph # (Auto) (1.2-3.4) K/uL [place] # (Auto) (0.11-0.59) K/uL Eos # (Auto) (0-0.5) K/uL Baso # (Auto) (0-0.2) K/uL PT 10.4 (9.0-12.0) Seconds INR 1.0 (0.9-1.1) APTT 25.4 (21.0-31.0) Seconds PTT Ratio 0.9 Sodium 135 L (136-145) mmol/L Potassium 4.2 (3.5-5.1) mmol/L Chloride 105 (98-107) mmol/L Carbon Dioxide 24 (21-32) mmol/L Anion Gap 6.0 (3-11) BUN 29 H (7-18) mg/dl Creatinine 0.80 (0.6-1.4) mg/dl Est Cr Clr Drug Dosing 125.4 ml/min Est GFR ( Amer) 114.9 Est GFR (Non-Af Amer) 99.2 BUN/Creatinine Ratio 36.5 H (10-20) Glucose 122 H (70-99) mg/dl Calcium 8.8 (8.5-10.1) mg/dl Phosphorus 2.3 L (2.5-4.9) mg/dl Magnesium 2.1 (1.8-2.4) mg/dl Total Bilirubin 0.9 (0.2-1) mg/dl AST 27 (15-37) U/L ALT 55 (12-78) U/L Alkaline Phosphatase 54 (45-117) U/L Troponin I < 0.015 (0-0.045) ng/ml Total Protein 7.9 (6.4-8.2) gm/dl Albumin 4.0 (3.4-5.0) gm/dl Globulin 3.9 (2.5-4.0) gm/dl Albumin/Globulin Ratio 1.0 (0.9-2) Lipase 96 (73-393) U/L Blood Type A Negative Antibody Screen NEGATIVE 09/16/19 Range/Units 19:10 WBC 8.85 (4.8-10.8) K/uL RBC 4.58 L (4.7-6.1) M/uL Hgb 15.2 (14.0-18.0) g/dL Hct 41.8 L (42-52) % MCV 91.3 (80-100) fL MCH 33.2 (25-34) pg MCHC 36.4 H (32-36) g/dL RDW Std Deviation 40.8 (36.4-46.3) fL RDW Coeff of Marcia 12.3 (11.5-14.5) % Plt Count 194 (130-400) K/uL MPV 8.9 (7.4-10.4) fL Immature Gran % (Auto) 0.2 % Neut % (Auto) 71.9 % Lymph % (Auto) 18.3 % [place] % (Auto) 8.5 % Eos % (Auto) 0.8 % Baso % (Auto) 0.3 % Immature Gran # (Auto) 0.02 (0.00-0.02) K/uL Neut # (Auto) 6.36 (1.4-6.5) K/uL Lymph # (Auto) 1.62 (1.2-3.4) K/uL [place] # (Auto) 0.75 H (0.11-0.59) K/uL Eos # (Auto) 0.07 (0-0.5) K/uL Baso # (Auto) 0.03 (0-0.2) K/uL PT (9.0-12.0) Seconds INR (0.9-1.1) APTT (21.0-31.0) Seconds PTT Ratio Sodium (136-145) mmol/L Potassium (3.5-5.1) mmol/L Chloride (98-107) mmol/L Carbon Dioxide (21-32) mmol/L Anion Gap (3-11) BUN (7-18) mg/dl Creatinine (0.6-1.4) mg/dl Est Cr Clr Drug Dosing ml/min Est GFR ( Amer) Est GFR (Non-Af Amer) BUN/Creatinine Ratio (10-20) Glucose (70-99) mg/dl Calcium (8.5-10.1) mg/dl Phosphorus (2.5-4.9) mg/dl Magnesium (1.8-2.4) mg/dl Total Bilirubin (0.2-1) mg/dl AST (15-37) U/L ALT (12-78) U/L Alkaline Phosphatase (45-117) U/L Troponin I (0-0.045) ng/ml Total Protein (6.4-8.2) gm/dl Albumin (3.4-5.0) gm/dl Globulin (2.5-4.0) gm/dl Albumin/Globulin Ratio (0.9-2) Lipase (73-393) U/L Blood Type Antibody Screen
--- NOTE | 2019-09-17 10:55 | History & Physical Bridge Note ---
Date of Service September 17, 2019 History & Physical Bridge Note I have examined the patient, reviewed the History & Physical and in the interval since the performance of the History & Physical I have noted the following changes of clinical significance: no changes noted
--- NOTE | 2019-09-17 11:00 | Anesthesiology Consultation ---
Date of Service September 17, 2019 Assessment & Plan Chart Review Chart Review: Acceptable Risk for Surgery and Patient NOT seen in Pre Admission Testing Consults Requested none History Surgery Operation Date: 09/17/19 15:20 Proposed Procedures p Esophagogastroduodenoscopy Dr Singleton - Jude Singleton MD Height/Weight Height: 5 ft 10 in Weight: 106.8 kg Allergies Allergy/AdvReac Type Severity Reaction Status Date / Time PAUL Inhibitors Allergy Unknown RASH Verified 09/16/19 19:52 iodine Allergy Unknown KIDNEY AND Verified 09/16/19 19:52 LIVER FAILURE hydrochlorothiazide AdvReac Unknown Seizure Verified 09/17/19 00:07 Medications Home Medications Medication Instructions Recorded Confirmed Last Taken aspirin 162 mg PO QAM 10/16/18 09/16/19 09/16/19 levothyroxine 100 mcg PO QAM 10/16/18 09/16/19 09/16/19 acetaminophen [Tylenol Extra 500 mg PO Q6H PRN 09/16/19 09/16/19 09/15/19 19:30 Strength] 1000 mg metoprolol tartrate 100 mg PO QAM 09/16/19 09/16/19 09/16/19 Active Medications Generic Name Dose Route Start Last Admin Trade Name Freq PRN Reason Stop Dose Admin Pantoprazole Sodium 40 mg/ 100 mls @ 20 mls/hr 09/16/19 21:45 09/17/19 10:21 Dextrose IV 10/16/19 21:44 20 mls/hr Q5H ANN Infusion Sodium Chloride 1,000 mls @ 40 mls/hr 09/16/19 23:59 09/17/19 01:03 Nss 1000ml IV 10/16/19 23:58 40 mls/hr .Q24H ANN Administration Levothyroxine Sodium 100 mcg 09/17/19 06:30 09/17/19 05:58 Synthroid PO 10/17/19 06:29 100 mcg DAILYBB ANN Administration Metoprolol Tartrate 100 mg 09/17/19 09:00 09/17/19 07:53 Lopressor PO 10/17/19 08:59 100 mg QAM ANN Administration NPO Date Last Intake of Fluids: 09/17/19 Time Last Intake of Fluids: 07:50 Date Last Intake of Solids: 09/16/19 Time Last Intake of Solids: 09:30 Past Medical History Medical History Atrial fibrillation DX 5 YEARS AGO - S/P ABLATION - FOLLOWS W/ DR. QUINTANILLA Fatty liver History of acute renal failure 5 YEARS AGO - [facility] - R/T INFECTION SECONDARY TO SPIDER BITE - DENIES CHRONIC ISSUES Hypertension Hypothyroidism Past Surgical History Surgical History History of appendectomy History of arthroscopy BL SHOULDER History of cardiac cath 5 YEARS AGO - [facility] - ARRHYTHMIA - NO STENTS/ANGIOPLASTY History of cardiac radiofrequency ablation History of cataract surgery History of colonoscopy W/ POLYPECTOMY History of esophagogastroduodenoscopy (EGD) History of tonsillectomy Social History Smoking Status: Never smoker Do You Dip or Chew Tobacco: No Hx Alcohol Use: No Hx Substance Use: No substance use type: does not use Physical Exam Vital Signs Last Vital Signs Temp 36.6 C 09/17/19 10:49 Pulse 62 09/17/19 10:49 Resp 18 09/17/19 10:49 BP 146/86 H 09/17/19 10:49 Pulse Ox 97 09/17/19 10:49 Testing Laboratory Results 09/17/19 06:32 09/17/19 06:32 PT 10.4 Seconds (9.0-12.0) 09/16/19 19:10 INR 1.0 (0.9-1.1) 09/16/19 19:10 APTT 25.4 Seconds (21.0-31.0) 09/16/19 19:10 Blood Type A Negative 09/16/19 19:34 Antibody Screen NEGATIVE 09/16/19 19:34
[2019-09-17] MEDS ORDERED: ePHEDrine sulfate 50 MG/ML AMP IV PRN (11:06)
[2019-09-17] MEDS ORDERED: ATROPINE SULFATE 0.1 MG/ML 10ML SYR IV PRN (11:06)
[2019-09-17] MEDS ORDERED: PROPOFOL IV EMULSION 10 MG/ML 20 ML VIAL IV ONE (11:33)
[2019-09-17] MEDS ORDERED: LIDOCAINE HCL 2% 2 ML VIAL/AMP(20MG/ML) INFIL ONE (11:33)
--- NOTE | 2019-09-17 11:50 | GI REPORT ---
Patient Name: Denise Gregory Procedure Date: 09/17/2019 10:51 AM Date of : 1960 Admit Type: Inpatient Age: 59 Gender: Male Attending MD: Jude Singleton MD Procedure: Upper GI endoscopy Providers: Jude Singleton MD Referring MD: BELLE MAI Indications: Melena Medicines: Propofol per Anesthesia Complications: No immediate complications. Estimated Blood Loss: Estimated blood loss: none. Procedure: Pre-Anesthesia Assessment: - Prior to the procedure, a History and Physical was performed, and patient medications, allergies and sensitivities were reviewed. The patient's tolerance of previous anesthesia was reviewed. - The risks and benefits of the procedure and the sedation options and risks were discussed with the patient. All questions were answered and informed consent was obtained. - Patient identification and proposed procedure were verified prior to the procedure by the physician and the nurse. The procedure was verified in the procedure room. - Pre-procedure physical examination revealed no contraindications to sedation. After obtaining informed consent, the endoscope was passed under direct vision. Throughout the procedure, the patient's blood pressure, pulse, and oxygen saturations were monitored continuously. The Endoscope was introduced through the mouth, and advanced to the second part of duodenum. The upper GI endoscopy was accomplished without difficulty. The patient tolerated the procedure well. Findings: A 1 cm hiatal hernia was found. The Z-line was found 39 cm from the incisors. LA Grade C (one or more mucosal breaks continuous between tops of 2 or more mucosal folds, less than 75% circumference) esophagitis with bleeding was found at the gastroesophageal junction. One superficial esophageal ulcer with oozing blood and stigmata of recent bleeding was found at the gastroesophageal junction. The lesion was 10 mm in largest dimension. Area was successfully injected with 4 mL of a 1:10,000 solution of epinephrine for hemostasis. Coagulation for hemostasis using bipolar probe was successful. A single, non-bleeding erosion was found in the gastric antrum. Biopsies were taken with a cold forceps for Helicobacter pylori testing. Verification of patient identification for the specimen was done by the physician and nurse using the patient's name and date. The duodenal bulb and second portion of the duodenum were normal. Impression: - 1 cm hiatal hernia. - Z-line, 39 cm from the incisors. - LA Grade C reflux esophagitis. - Bleeding esophageal ulcer. Injected. Treated with bipolar cautery. - Non-bleeding erosive gastropathy. Biopsied. - Normal duodenal bulb and second portion of the duodenum. Recommendation: - Discharge patient to home. - Clear liquid diet today, then advance as tolerated to soft diet for 3 days. - Follow an antireflux regimen. - Use a proton pump inhibitor IV daily for 2 days. - Use a proton pump inhibitor PO BID for 3 months. - Repeat upper endoscopy in 2 months to check healing. - Return to referring physician. Jude Singleton MD 09/17/2019 11:50:01 AM This report has been signed electronically. Note Initiated On: 09/17/2019 10:51 AM Number of Addenda: 0 I attest to the content of the Intraoperative Record and orders documented therein, exceptions below {[id number]}
[2019-09-17 12:44] LABS: Hemoglobin 13.7 g/dL (14.0-18.0)
--- NOTE | 2019-09-17 13:36 | Hospitalist Progress Note ---
Date of Service September 17, 2019 Assessment & Plan (1) UGIB (upper gastrointestinal bleed): Bleeding Esophageal Ulcer Present on admission with dark stool Hemoglobin dropped from 15 to 13, then 13.7 with most recent h/h S/P EGD done showed bleeding esophageal ulcer. Treated with bipolar cautery. Case discussed with GI recommended to continue IV PPI for 2 days Then transition to oral PPI BID for 3 days Repeat EGD in 2 months to check for healing Continue clear liquid diet today, then advance as tolerated to soft diet for 3 days. Monitor hemoglobin daily while in the hospital Continue to hold aspirin for now Hypothyroidism Continue levothyroxine PAF sp ablation Rate control Continue metoprolol Elevated glucose last HbA1c of 5.9 on June 2019 Monitor BS DVT PX on SCDs Code Status Full code Subjective Pt was seen and examined Lying in bed with no distress Pt said that he feels ok Denies any chest pain, palpitation, dizziness and SOB Physical Exam Physical Exam: General- No acute distress Head- atraumatic Eyes- PERRL, EOMI, ENT- oropharynx clear Neck- supple, no JVD Lungs- clear to auscultation Heart- regular rhythm; no murmur Abdomen- normal bowel sounds, soft, nontender Extremities- no calf tenderness Neuro- alert, oriented x 3; PERRL, EOMI; no facial palsy; no dysarthria Skin- warm & dry Results & Data Vital Signs (Past 12 Hours) Vital Signs Temp Pulse Pulse Resp BP Pulse Ox 09/17/19 12:10 68 18 143/90 H 94 09/17/19 11:55 70 18 131/89 95 09/17/19 11:40 36.6 C 80 16 121/81 94 09/17/19 10:49 36.6 C 62 18 146/86 H 97 09/17/19 09:56 73 09/17/19 07:05 36.6 C 73 16 119/72 98 09/17/19 04:37 36.6 C 72 18 128/76 94 09/17/19 03:15 71
--- NOTE | 2019-09-17 21:49 | Electrocardiogram Report ---
Test Reason : Blood Pressure : / mmHG Vent. Rate : 075 BPM Atrial Rate : 075 BPM P-R Int : 192 ms QRS Dur : 096 ms QT Int : 378 ms P-R-T Axes : 049 004 011 degrees QTc Int : 422 ms Normal sinus rhythm Normal ECG When compared with ECG of 30-OCT-2018 09:11, No significant change was found Confirmed by Tio Rendon ([id number]) on 09/17/2019 9:48:57 PM Referred By: REFERRED SELF Confirmed By:Tio Rendon
[2019-09-18] MEDS: SODIUM CHLORIDE 0.9% 1000ML 1,000 ML IV SCH (02:16)
[2019-09-18] MEDS: PANTOprazole 40 MG in DEXTROSE 5% 100 ML IV SCH ×5 (04:23→23:35)
[2019-09-18] MEDS ORDERED: Nursing to Pharmacy Communication ONE (06:14)
[2019-09-18] MEDS: LEVOTHYROXINE SODIUM 100 MCG TABLET PO SCH (06:18)
[2019-09-18 06:54] LABS: Hematocrit (blood only) 36.1 % (42-52); Hemoglobin 12.8 g/dL (14.0-18.0); Mean Corpuscular Hemoglobin 32.5 pg (25-34); Mean Corpuscular Hgb Conc 35.5 g/dL (32-36); Mean Corpuscular Volume 91.6 fL (80-100); Mean Platelet Volume 8.2 fL (7.4-10.4); Platelet Count 154 K/uL (130-400); RDW Coefficient of Variation 12.3 % (11.5-14.5); RDW Standard Deviation 41.3 fL (36.4-46.3); Red Blood Count 3.94 M/uL (4.7-6.1); White Blood Count 4.85 K/uL (4.8-10.8)
[2019-09-18 07:28] LABS: BUN Creatinine Ratio 12.8 (10-20); Calcium 8.3 mg/dl (8.5-10.1); Creatinine Clr Calc Pharmacy 109.7 ml/min; Est GFR (African American) 109.5; Est GFR (Non-African American) 94.5; Potassium 3.6 mmol/L (3.5-5.1)
--- NOTE | 2019-09-18 07:33 | Gastroenterology Progress Note ---
Date of Service September 18, 2019 Assessment & Plan (1) UGIB (upper gastrointestinal bleed): 59 year old male presenting with melena, s/p EGD w/ evidence of bleeding esophageal ulcer - injected, esophagitis and nonbleeding erosive gastritis. He is clinically feeling well, stable BP and HGB this AM 12.8. He did pass a small amount of melena this AM, likely residual - Advance as tolerated to soft diet for 3 days then can resume regular OP diet - Use a proton pump inhibitor IV daily for 2 days (into this evening) - Use a proton pump inhibitor PO BID for 3 months. - Repeat upper endoscopy in 2 months to check healing. - GERD dietary and lifestyle changes discussed - Ok for ASA but to avoid other NSAIDs Thank you for allowing us to participate in the care of this patient. Please call with any acute changes, questions or concerns. Please see addendum below with additional recommendation from my supervising physician. Supervising Physician Co-Signing Physician Notes I performed a history and physical examination of the patient, including specifically on physical exam - soft, nontender abdomen. I have discussed the patient's management with Crystal. Please refer to the nurse practitioner's note for the documented findings and plan of care. H/H stable. Switch to PO PPI BID. EGD as OP in 2 months. Recall Gi if needed. Subjective Pt was seen and evaluated, chart reviewed S/P EGD w/ bleeding esophageal ulcer - injected, reflux esophagitis, 1 cm hiatal hernia and erosive gastropathy Feeling well this AM without pain, nausea/vomiting Did move his bowels this AM - stool was dark No BRBPR, fever, chills, CP, SOB Review of Systems Constitutional: no fever and no chills Respiratory: no cough and no dyspnea Cardiovascular: no chest pain and no dyspnea on exertion Gastrointestinal: + melena; no abdominal pain and no vomiting Physical Exam Constitutional: WD/WN, vitals as above Neck: trachea midline Respiratory: normal respiratory effort Cardiovascular: Rate/Rhythm: regular rate and regular rhythm Gastrointestinal (Abdomen): normal bowel sounds, soft, nontender, no hepatosplenomegaly Results & Data Vital Signs (Past 12 Hours) Vital Signs Temp Pulse Pulse Resp BP BP Pulse Ox 09/18/19 07:11 36.4 C L 65 18 125/73 96 09/18/19 04:32 36.6 C 60 16 118/74 95 09/18/19 03:08 65 09/17/19 23:24 36.7 C 75 16 128/73 100 09/17/19 19:51 36.9 C 61 16 128/79 95 Laboratory Results 09/18/19 09/18/19 09/17/19 Range/Units 06:42 06:42 12:32 WBC 4.85 (4.8-10.8) K/uL RBC 3.94 L (4.7-6.1) M/uL Hgb 12.8 L 13.7 L (14.0-18.0) g/dL Hct 36.1 L 38.0 L (42-52) % MCV 91.6 (80-100) fL MCH 32.5 (25-34) pg MCHC 35.5 (32-36) g/dL RDW Std Deviation 41.3 (36.4-46.3) fL RDW Coeff of Marcia 12.3 (11.5-14.5) % Plt Count 154 (130-400) K/uL MPV 8.2 (7.4-10.4) fL Sodium 139 (136-145) mmol/L Potassium 3.6 (3.5-5.1) mmol/L Chloride 108 H (98-107) mmol/L Carbon Dioxide 26 (21-32) mmol/L Anion Gap 5.0 (3-11) BUN 12 (7-18) mg/dl Creatinine 0.90 (0.6-1.4) mg/dl Est Cr Clr Drug Dosing 109.7 ml/min Est GFR ( Amer) 109.5 Est GFR (Non-Af Amer) 94.5 BUN/Creatinine Ratio 12.8 (10-20) Glucose 116 H (70-99) mg/dl Calcium 8.3 L (8.5-10.1) mg/dl
--- NOTE | 2019-09-18 08:10 | Anesthesiology Progress Note ---
Date of Service September 18, 2019 Anesthesia Post Procedure Vital Signs Vital Signs: Temp Pulse Pulse Resp BP BP Pulse Ox 09/18/19 07:59 58 L 09/18/19 07:11 36.4 C L 65 18 125/73 96 09/18/19 04:32 36.6 C 60 16 118/74 95 09/18/19 03:08 65 09/17/19 23:24 36.7 C 75 16 128/73 100 09/17/19 19:51 36.9 C 61 16 128/79 95 09/17/19 17:30 60 09/17/19 15:15 36.6 C 120 H 16 126/79 94 09/17/19 12:10 68 18 143/90 H 94 09/17/19 11:55 70 18 131/89 95 09/17/19 11:40 36.6 C 80 16 121/81 94 09/17/19 10:49 36.6 C 62 18 146/86 H 97 09/17/19 09:56 73 Notes Mental Status: alert / awake / arousable Patient Amnestic to Procedure: Yes Nausea / Vomiting: adequately controlled Pain: adequately controlled Airway Patency, RR, SpO2: stable & adequate BP & HR: stable & adequate Hydration State: stable & adequate Anesthetic Complications: no major complications apparent and Pt Satisfied with anesthetic care
[2019-09-18] MEDS: METOPROLOL TARTRATE 100 MG TAB PO SCH (08:21)
--- NOTE | 2019-09-18 17:25 | Hospitalist Progress Note ---
Date of Service September 18, 2019 Assessment & Plan (1) UGIB (upper gastrointestinal bleed): Bleeding Esophageal Ulcer Present on admission with dark stool Hemoglobin dropped from 15 to 13, then 13.7 with most recent h/h S/P EGD done showed bleeding esophageal ulcer. Treated with bipolar cautery. Case discussed with GI recommended to continue IV PPI for 2 days (done tonight) Then will transition to oral PPI BID for 3 months Repeat EGD in 2 months to check for healing tolerated clear liquid diet today, then advance as tolerated to soft diet for 3 days. Monitor hemoglobin daily while in the hospital Ok to resume aspirin on discharge as per GI, but avoid other NSAIDS Hemoglobin 12.8 today Hypothyroidism Continue levothyroxine PAF sp ablation Rate control Continue metoprolol Elevated glucose last HbA1c of 5.9 on June 2019 Monitor BS DVT PX on SCDs Code Status Full code Disposition Stable to discharge (Pt does not have a ride to go home (it was 4:45PM), will take him tomorrow ) Follow up with your primary care provide Check CBC in 1 week Follow with Gastroenterology to repeat EGD in 8 weeks Subjective Pt was seen and examined. Lying in bed with no distress. Pt said that he feels fine Pt said that he does not have a ride to go home because his just left the hospital He said that his will come take him tomorrow morning He said that he had a small amount of black stool this morning Denies any chest pain, palpitation and SOB Physical Exam Physical Exam: General- No acute distress Head- atraumatic Eyes- PERRL, EOMI, ENT- oropharynx clear Neck- supple, no JVD Lungs- clear to auscultation Heart- regular rhythm; no murmur Abdomen- normal bowel sounds, soft, nontender Extremities- no calf tenderness Neuro- alert, oriented x 3; PERRL, EOMI; no facial palsy; no dysarthria Skin- warm & dry Results & Data Vital Signs (Past 12 Hours) Vital Signs Temp Pulse Pulse Pulse Resp BP BP 09/18/19 15:34 36.4 C L 69 18 124/71 09/18/19 11:21 36.5 C 59 L 18 143/88 H 09/18/19 08:21 74 09/18/19 07:59 58 L 09/18/19 07:11 36.4 C L 65 18 125/73 Pulse Ox 01/21/20 15:34 95 09/18/19 11:21 98 09/18/19 08:21 09/18/19 07:59 09/18/19 07:11 96
[2019-09-19] MEDS: PANTOprazole 40 MG in DEXTROSE 5% 100 ML IV SCH ×2 (04:47→09:45)
[2019-09-19] MEDS: LEVOTHYROXINE SODIUM 100 MCG TABLET PO SCH (06:05)
[2019-09-19] MEDS: METOPROLOL TARTRATE 100 MG TAB PO SCH (08:55)
[2019-09-19] MEDS ORDERED: PANTOprazole 40 MG TAB PO SCH (10:00)
--- NOTE | 2019-09-19 10:42 | Hospitalist Progress Note ---
Date of Service September 19, 2019 Assessment & Plan (1) UGIB (upper gastrointestinal bleed): Secondary to bleeding Esophageal Ulcer Present on admission with dark stool Hemoglobin dropped from 15 to 13, then 13.7 with most recent h/h S/P EGD done showed bleeding esophageal ulcer. Treated with bipolar cautery. Finished intravenous Protonix for 2 days Will change to oral Protonix, 40 mg twice daily for 3 months as per recommendation Repeat EGD in 2 months to check for healing Hemoglobin remains stable following the procedure Has been tolerating regular diet We will discharge home today Can take his aspirin as before but no NSAID use Hypothyroidism Continue levothyroxine PAF sp ablation Rate control Continue metoprolol Will have aspirin as before Elevated glucose last HbA1c of 5.9 on June 2019 Monitor BS DVT PX on SCDs Code Status Full code We will see his PCP in 1 week Follow with Gastroenterology to repeat EGD in 8 weeks Discharge this afternoon Subjective 09/19/2019 Patient was seen and examined in medical telemetry unit in presence of the He does not have any complaints today and wants to go home No more abdominal discomfort and/or bleeding Ambulating well without any difficulty Review of Systems Review of Systems: All systems reviewed and are unremarkable except as noted below Gastrointestinal: no abdominal pain, no bloating, no nausea and no vomiting Physical Exam Physical Exam: Lying in bed without any acute symptoms Constitutional: well developed, well nourished and + obese Eyes: PERRL, conjunctivae normal, anicteric sclerae ENMT: external ear and nose normal, oropharynx normal Neck: trachea midline, no thyromegaly Respiratory: normal respiratory effort; no respiratory distress Auscultation: lungs clear to auscultation bilaterally Cardiovascular: Rate/Rhythm: regular rate and regular rhythm Heart Sounds: no murmur Gastrointestinal (Abdomen): Inspection/Auscultation: abdomen normal to inspection and normal bowel sounds Musculoskeletal: No acute arthritis in any joints Neurologic: Alert, awake and oriented x3 Lymphatic: no cervical or axillary lymphadenopathy Results & Data Vital Signs (Past 12 Hours) Vital Signs Temp Pulse Pulse Pulse Resp BP Pulse Ox 09/19/19 08:01 65 09/19/19 06:57 36.6 C 62 18 128/75 96 09/19/19 00:06 36.9 C 67 19 129/79 95 09/19/19 00:00 60 Medications Administered Current Inpatient Medications Acetaminophen (Tylenol) 325 mg PO Q6H PRN PRN Reason: Pain or Fever Stop: 10/16/19 23:58 Promethazine HCl 12.5 mg/ (Sodium Chloride) 50.5 mls @ 202 mls/hr IV Q6H PRN PRN Reason: Nausea And Vomiting Stop: 10/16/19 23:58 Lorazepam (Ativan) 0.5 mg in 1 mls @ 1 mls/min IV Q4H PRN PRN Reason: Anxiety/Agitation Stop: 10/16/19 23:58 Levothyroxine Sodium (Synthroid) 100 mcg PO DAILYBB [facility] Stop: 10/17/19 06:29 Last Admin: 09/19/19 06:05 Dose: 100 mcg Documented by: Metoprolol Tartrate (Lopressor) 100 mg PO QAM [facility] Stop: 10/17/19 08:59 Last Admin: 09/19/19 08:55 Dose: 100 mg Documented by: Pantoprazole Sodium (Protonix) 40 mg PO BID [facility] Stop: 10/19/19 09:59 Tramadol HCl (Ultram) 25 mg PO Q4H PRN PRN Reason: Pain Stop: 10/16/19 23:58
--- NOTE | 2019-09-20 07:21 | Discharge Summary ---
Date of Service September 20, 2019 Admission HPI Per Admitting Provider History obtained from patient, family, and records. Medical history significant for A. fib status post ablation, hypertension, hypothyroidism, prediabetes as per records, colonic polyposis as per records, history difficult intubation as per records. Recent confinement August 2012 for acute parotitis. This morning, patient noted melanotic stools without nausea, emesis, abdominal pain symptoms. No chest pain, no S OB. No prior episodes. No OTC NSAID intake. No unusual weight loss. At the ER, patient started on PPI for UGIB. 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 Admission Exam Per Admitting Provider Physical Exam: GENERAL: Comfortable, obese, slightly anxious, no respiratory distress SKIN: Normal color, warm HEENT: [place] palpebral conjunctivae, no ptosis, dry buccal mucosa NECK : Supple, short neck, no tenderness CHEST : CTA, no tenderness HEART : RRR, no obvious murmurs ABDOMEN: Some distention, nontender EXTREMITIES : No LE swelling/tenderness, no other conspicuous deformities noted NEUROLOGIC : Coherent, no facial asymmetry, no other gross focality Principal Diagnosis Upper GI bleed secondary to bleeding esophageal ulcer Discharge Exam Constitutional well developed, well nourished and + obese Eyes PERRL, conjunctivae normal, anicteric sclerae ENMT external ear and nose normal, oropharynx normal Neck trachea midline, no thyromegaly Respiratory normal respiratory effort; no respiratory distress Auscultation: lungs clear to auscultation bilaterally Cardiovascular Rate/Rhythm: regular rate and regular rhythm Heart Sounds: no murmur Gastrointestinal (Abdomen) Inspection/Auscultation: abdomen normal to inspection and normal bowel sounds Lymphatic no cervical or axillary lymphadenopathy Discharge Data Allergies Allergy/AdvReac Type Severity Reaction Status Date / Time PAUL Inhibitors Allergy Unknown RASH Verified 09/16/19 19:52 iodine Allergy Unknown KIDNEY AND Verified 09/16/19 19:52 LIVER FAILURE hydrochlorothiazide AdvReac Unknown Seizure Verified 09/17/19 00:07 Consultations 09/16/19 21:29 ED Decision to Admit Stat 09/16/19 23:59 Consult Gastroenterology Routine Procedures Performed Operation Date: 09/17/19 15:20 Actual Procedures p EGD Biopsy Cytology - Jude Singleton MD Ordered Studies 09/16/19 19:46 CT abd pelvis IV con only Stat Hospital Course (1) UGIB (upper gastrointestinal bleed): Secondary to bleeding Esophageal Ulcer Present on admission with dark stool Hemoglobin dropped from 15 to 13, then 13.7 with most recent h/h S/P EGD done showed bleeding esophageal ulcer. Treated with bipolar cautery. Finished intravenous Protonix for 2 days Will change to oral Protonix, 40 mg twice daily for 3 months as per recommendation Repeat EGD in 2 months to check for healing Hemoglobin remains stable following the procedure Has been tolerating regular diet We will discharge home today Can take his aspirin as before but no NSAID use Hypothyroidism Continue levothyroxine PAF sp ablation Rate control Continue metoprolol Will have aspirin as before Elevated glucose last HbA1c of 5.9 on June 2019 Monitor BS DVT PX on SCDs Code Status Full code We will see his PCP in 1 week Follow with Gastroenterology to repeat EGD in 8 weeks Discharge this afternoon Total Time Total Time Spent Total Time Spent (In Minutes): 35 Minutes Total Time Includes: Examination of the Patient, Discharge Planning, Medication Reconciliation and Communication With Other Providers Discharge Plan Discharge Items Patient Disposition: Home - Self-Care Reason For Visit: UGIB Discharge Diagnosis: Upper GI bleed secondary to bleeding esophageal ulcer Condition on Discharge: Good Activity: Resume your previous activity Non-emergency contact: Primary Care Provider Call non-emergency contact if: you have any medication questions and your symptoms worsen Follow-up/Referrals: Deniz Rodriguez MD [Outside Practitioners] - 09/21/19 10:25 am (Please have a CBC done during this appointment) Diet: Heart Healthy Diet Texture: Dental soft (bite-sized) Diet Comment: Dental soft diet for 2 more days and then resume regular diet Addtl Attending Provider Instructions: You can continue with her aspirin but do not take any other NSAID use Continue Protonix 2 times daily for 3 months Pending Studies at Discharge: No Stand-Alone Forms: [employer] Education, Smoking Cessation Medications and DC Order Prescriptions: New pantoprazole 40 mg Tablet,Delayed Release (Dr/Ec) 40 mg PO BID Qty: 60 RF: 0 Continued aspirin 81 mg Tablet,Delayed Release (Dr/Ec) 162 mg PO QAM RF: 0 levothyroxine 100 mcg Tablet 100 mcg PO QAM RF: 0 metoprolol tartrate 50 mg tablet 100 mg PO QAM RF: 0 acetaminophen [Tylenol Extra Strength] 500 mg Tablet 500 mg PO Q6H PRN (Reason: Pain) RF: 0 Discharge Orders: Discharge Order (Routine); Ordered 09/19/19 Ordered By: Thad Denny Admission Data Admit Date/Time: 09/18/19 17:32 Attending Provider: Thad Denny Admit Provider: Ousmane Moulton Primary Care Provider: Louis Choudhury Other Providers: Ousmane Moulton ; Jude Singleton ; Bridger Crenshaw Other Interventions: Discharge Summary Assessment (RN) Last Done: 09/19/19 14:34 DC Date/Time DO NOT enter until pt leaves facility: 09/19/19 15:33
== END 2019-09-19 15:33 | disposition home or self-care (01) | DRG 381 ==
LOC: 2W 18:48 → ED 18:48 → 2W 23:04 → SUATTDRO 09-18 17:32